=== PATIENT | female | born 1970 | race Caucasian/White ===

== ENCOUNTER 2020-11-29 06:54 | Day surgery (SDC) | payer BC, OTHER ==
[~2020-11-29 06:54] MED LIST: Dextrose 5%-0.45% NaCl 1,000 ML IV SCH; Midazolam 1 MG/ML 2 ML SDV ONE; Sodium Chloride 0.9% 10 ML Syringe FLUSH PRN; fentaNYL 100 MCG/2 ML SDV ONE
[2020-11-29] MEDS ORDERED: Midazolam 1 MG/ML 2 ML SDV IV ONE ×7 (06:55→07:44)
[2020-11-29] MEDS ORDERED: fentaNYL 100 MCG/2 ML SDV IV ONE ×3 (06:55→07:29)
--- NOTE | 2020-11-29 09:21 | OR ---
DATE: 11/29/2020 PROCEDURES: Incomplete colonoscopy, narrow-band imaging, and snare polypectomy. INSTRUMENT USED: PCF-H190DL Olympus video colonoscope. PREMEDICATIONS: Fentanyl 100 mcg intravenous, Versed 4 mg intravenous, nasal O2 cannula. The procedure was done under pulse oximetry, BP recording, and conveyor monitor. INDICATION: Screening colonoscopic examination is done for detection of any polypoid lesions and removal, endoscopic hemostasis therapy if needed. DESCRIPTION OF PROCEDURE: Initial rectal exam showed solid stool material that could be felt with fingertip. Rigid anoscopy was unremarkable. The colonoscope was passed with ease. In the distal rectum, just over 1 cm sized benign- appearing polyp was noted, NBI views were obtained, snare polypectomy was done, the tissues were retrieved and sent for histopathology. Polypectomy site was found to be clean. Photographs were taken of the rectal polyp and also polypectomy site. The scope was passed with ease up to the proximal descending colon area. Large amount of solid fecal material noted preventing further advancement of the instrument to visualize proximal areas. No bleeding was noted from any of the visualized areas at the commencement of the examination. The bowel preparation was quite inadequate. No stricture. No vascular ectasia. No large isolated ulcerations seen. No evidence of diffuse inflammatory bowel disease in the form of friability, contact bleeding, or ulcerations. Probing the proximal sides of folds and flexures using adequate distention, and clearing up the stool material, withdrawal of the scope was made. No bleeding was noted from any of the visualized areas at the completion of examination. IMPRESSION: Rectal polyp. The patient tolerated the procedure well. [facility] /[id number]
== END 2020-11-29 10:00 | disposition home or self-care (01) ==
LOC: DL.ENDO 06:54
PROVIDERS: ATTEND Internal Medicine Gastroenterology
DX: D12.8 Benign neoplasm of rectum (principal); E78.5 Hyperlipidemia, unspecified; M54.5 Low back pain; I10 Essential (primary) hypertension; F79 Unspecified intellectual disabilities; I87.309 Chronic venous hypertension (idiopathic) without complications of unspecified lower extremity; E66.09 Other obesity due to excess calories; Z68.39 Body mass index [BMI] 39.0-39.9, adult
CPT/HCPCS: 45338; J2250; J3010; J7042

== ENCOUNTER 2020-12-14 05:18 | Day surgery (SDC) | payer BC ==
[2020-12-14] MEDS ORDERED: Midazolam 1 MG/ML 2 ML SDV IV ONE ×6 (05:19→06:59)
[2020-12-14] MEDS ORDERED: fentaNYL 100 MCG/2 ML SDV IV ONE ×3 (05:19→06:39)
[2020-12-14] MEDS ORDERED: Dextrose 5%-0.45% NaCl 1,000 ML IV SCH (05:30)
[2020-12-14] MEDS ORDERED: Sodium Chloride 0.9% 10 ML Syringe FLUSH PRN (05:30)
[2020-12-14] MEDS ORDERED: fentaNYL 100 MCG/2 ML SDV ONE (05:41)
[2020-12-14] MEDS ORDERED: Midazolam 1 MG/ML 2 ML SDV ONE (05:41)
--- NOTE | 2020-12-14 08:29 | OR ---
DATE: 12/14/2020 PROCEDURE: Total colonoscopy. INSTRUMENT USED: PCF-H190DL Olympus video colonoscope. PREMEDICATIONS: Fentanyl 100 mcg intravenous, Versed 3.5 mg intravenous. Nasal O2 cannula. The procedure was done under pulse oximetry, BP recording, and threat monitoring analyst. INDICATION: The patient with previous colonic adenoma with restudy after inadequate bowel preparation before, 2-day bowel preparation carried out now. Colonoscopic examination is done for detection of any polypoid lesions and removal, endoscopic hemostasis therapy if needed. DESCRIPTION OF PROCEDURE: Initial rectal exam was unremarkable. Rigid anoscopy was normal. The colonoscope was passed with ease. Left colonic diverticula noted. The scope was passed with ease up to the ileocecal area. Photographs were taken of the normal-appearing cecum identified by double-bulged ileocecal folds. No bleeding was noted from any of the visualized areas at the commencement of the examination. There was large amount of fecal material, solid in consistency, also limited visualization of quite a few areas. Bowel preparation, [place] scale 2 in right colon, 1 in transverse and left colon, total score 4. No stricture, no vascular ectasia. No large isolated ulcerations seen. No evidence of diffuse inflammatory bowel disease in the form of friability, contact bleeding, or ulcerations. No polyp or tumor mass identified. Probing the proximal sides of folds and flexures using adequate distention and clearing up the stool material, withdrawal of the scope was made. Cecum to rectum time over 6 minutes. No bleeding was noted from any of the visualized areas at the completion of examination. IMPRESSION: Diverticulosis. The patient tolerated the procedure well. [facility] /[id number]
== END 2020-12-14 09:16 | disposition home or self-care (01) ==
LOC: DL.ENDO 05:18
PROVIDERS: ATTEND Internal Medicine Gastroenterology
DX: Z12.11 Encounter for screening for malignant neoplasm of colon (principal); K57.30 Diverticulosis of large intestine without perforation or abscess without bleeding; E66.09 Other obesity due to excess calories; E78.5 Hyperlipidemia, unspecified; F79 Unspecified intellectual disabilities; I10 Essential (primary) hypertension
CPT/HCPCS: 45378; J2250; J3010; J7042

== ENCOUNTER 2021-02-15 13:37 | Inpatient (IN) | payer BC ==
[2021-02-15] MEDS ORDERED: Docusate Sodium 100 MG Cap PO PRN (14:49)
[2021-02-15] MEDS ORDERED: Ondansetron 4 MG/2 ML SDV IVPUSH PRN (14:49)
[2021-02-15] MEDS ORDERED: Bisacodyl 5 MG Tab PO PRN (14:49)
--- NOTE | 2021-02-15 15:12 | PCM.HP ---
H&P History of Present Illness - General Date of Service: 02/15/21 Admit Problem/Dx: Admission Diagnosis/Problem Admission Diagnosis/Problem Cellulitis Source of Information: Patient, Provider (PCP) - History of Present Illness Initial Comments - Free Text/Narative: Pt is 50 y/o women sent from the clinic by her primary provider due to extensive cellulitis B legs. PT has chronic lymphedema with h/o recurrent cellulitis. Due to the extensive cellulitis, pt was admitted for IV antibiotics and dressing. Pt reports chills but no fever. No N/V/D. - Related Data Allergies/Adverse Reactions: Allergies Allergy/AdvReac Type Severity Reaction Status Date / Time No Known Allergies Allergy Verified 12/13/20 06:31 Home Medications: Home Meds Acetaminophen [Acetaminophen Extra Strength] 1,000 mg PO Q6H PRN 11/26/20 [History] Aspirin [Halfprin] 81 mg PO DAILY 11/26/20 [History] Ibuprofen 200 mg PO Q6H PRN 11/26/20 [History] No122/Iron/Folic Acid [ Multi Tablet] 1 tab PO DAILY 11/26/20 [History] Past Medical History HEENT History: Reports: Cataract, Impaired Vision Cardiovascular History: Reports: Blood Clots/VTE/DVT, High Cholesterol, Other (See Below) Other Cardiovascular History: STASIS EDEMA OF BILAT LE Respiratory History: Reports: None Gastrointestinal History: Reports: Colon Polyp, Other (See Below) Other Gastrointestinal History: S/P RECTAL VILLOTUBULAR ADENOMA Genitourinary History: Reports: None JOINTER MACHINE History: Reports: Musculoskeletal History: Reports: Back Pain, Chronic Neurological History: Reports: Other (See Below) Other Neuro History: INTELLECTUAL DISABILITY BORDERLINE. NIGHT TERRORS Psychiatric History: Reports: Learning Disability, Other (See Below) Other Psychiatric History: BORDERLINE INTELLECTUAL FUNCTIONING Endocrine/Metabolic History: Reports: Obesity/BMI 30+ Hematologic History: Reports: None Immunologic History: Reports: None Oncologic (Cancer) History: Reports: None Dermatologic History: Reports: Venous Stasis Dermatitis, Other (See Below) Other Dermatologic History: STASIS EDEMA WITH ULCER LEFT LOWER EXTREMITY - Infectious Disease History Infectious Disease History: Reports: Chicken Pox, Measles, Mumps - Past Surgical History Head Surgeries/Procedures: Reports: None HEENT Surgical History: Reports: None Cardiovascular Surgical History: Reports: None Respiratory Surgical History: Reports: None GI Surgical History: Reports: Colonoscopy, Polypectomy Endocrine Surgical History: Reports: None Neurological Surgical History: Reports: None Musculoskeletal Surgical History: Reports: None Oncologic Surgical History: Reports: None Dermatological Surgical History: Reports: None Social & Family History - Caffeine Use Caffeine Use: Reports: Coffee, Soda Other Caffeine Use: AVERAGE OF 36 OZ DAILY H&P Review of Systems - Review of Systems: Review Of Systems: Comprehensive ROS is negative, except as noted in HPI. General: Reports: Chills. Denies: Fever Pulmonary: Denies: Shortness of Breath Cardiovascular: Denies: Chest Pain Gastrointestinal: Denies: Abdominal Pain, Diarrhea, Nausea Genitourinary: Denies: Dysuria Psychiatric: Denies: Confusion Neurological: Denies: Confusion Exam - Exam Exam: See Below - Exam Quality Assessment: No: Supplemental Oxygen General: Alert, Oriented, Cooperative HEENT: EOMI Neck: Supple Lungs: Clear to Auscultation, Normal Respiratory Effort Cardiovascular: Regular Rate, Regular Rhythm GI/Abdominal Exam: Soft, Non-Tender Extremities: Pedal Edema, Other Skin: Rash, Wound, Other (skin is red and oozing , pus / drainge / extensive B legs) Neurological: Cranial Nerves Intact Neuro Extensive - Mental Status: Alert, Oriented x3 Neuro Extensive - Motor, Sensory, Reflexes: No: Normal Gait (pt is having trouble ambulating due to lower ext edema) Problem List Initiated/Reviewed/Updated: No Orders Last 24hrs: Active Orders 24 hr Category Date Time Status Patient Status [ADT] Routine ADT 02/15/21 14:50 Active Dressing Change [Wound Care] [RC] Q12H Care 02/15/21 14:59 Active Oxygen Therapy [RC] PRN Care 02/15/21 14:50 Active VTE/DVT Education [RC] PER UNIT ROUTINE Care 02/15/21 14:50 Active Vital Signs [RC] Q4H Care 02/15/21 14:50 Active OT Evaluation and Treatment [CONS] Routine Cons 02/15/21 14:49 Active PT Evaluation and Treatment [CONS] Routine Cons 02/15/21 14:49 Active Regular Diet [DIET] Diet 02/15/21 Dinner Active Venous Doppler Lwr Ext Lt [US] Urgent Exams 02/15/21 15:05 Ordered Venous Doppler Lwr Ext Rt [US] Urgent Exams 02/15/21 15:05 Ordered BASIC METABOLIC PANEL,BMP [CHEM] AM Lab 02/16/21 05:11 Ordered BASIC METABOLIC PANEL,BMP [CHEM] AM Lab 02/17/21 05:11 Ordered BASIC METABOLIC PANEL,BMP [CHEM] AM Lab 02/18/21 05:11 Ordered BASIC METABOLIC PANEL,BMP [CHEM] AM Lab 02/19/21 05:11 Ordered BASIC METABOLIC PANEL,BMP [CHEM] AM Lab 02/20/21 05:11 Ordered BASIC METABOLIC PANEL,BMP [CHEM] AM Lab 02/21/21 05:11 Ordered BASIC METABOLIC PANEL,BMP [CHEM] AM Lab 02/22/21 05:11 Ordered BASIC METABOLIC PANEL,BMP [CHEM] Stat Lab 02/15/21 14:49 Ordered CBC WITH AUTO DIFF [HEME] AM Lab 02/16/21 05:11 Ordered CBC WITH AUTO DIFF [HEME] AM Lab 02/17/21 05:11 Ordered CBC WITH AUTO DIFF [HEME] AM Lab 02/18/21 05:11 Ordered CBC WITH AUTO DIFF [HEME] AM Lab 02/19/21 05:11 Ordered CBC WITH AUTO DIFF [HEME] AM Lab 02/20/21 05:11 Ordered CBC WITH AUTO DIFF [HEME] AM Lab 02/21/21 05:11 Ordered CBC WITH AUTO DIFF [HEME] AM Lab 02/22/21 05:11 Ordered CBC WITH AUTO DIFF [HEME] Stat Lab 02/15/21 14:49 Ordered CULTURE BLOOD [BC] Stat Lab 02/15/21 14:55 Ordered CULTURE BLOOD [BC] Stat Lab 02/15/21 14:55 Ordered CULTURE WOUND + SMEAR [RM] Routine Lab 02/15/21 15:03 Ordered HCG QUALITATIVE,URINE [URCHEM] Stat Lab 02/15/21 14:49 Ordered Acetaminophen [TylenoL] Med 02/15/21 14:49 Ordered 650 mg PO Q4H PRN Docusate Sodium [Colace] Med 02/15/21 14:49 Ordered 100 mg PO BID PRN Enoxaparin [Lovenox] Med 02/15/21 15:00 Ordered 40 mg SUBCUT DAILY Furosemide [Lasix] Med 02/15/21 15:15 Ordered 20 mg IVPUSH BIDDIURETIC Ondansetron [Zofran] Med 02/15/21 14:49 Ordered 4 mg IVPUSH Q6H PRN Pharmacy to Dose - Vancomycin Med 02/15/21 15:00 Ordered 1 dose .XX ASDIRECTED bisacodyL [Dulcolax] Med 02/15/21 14:49 Ordered 5 mg PO DAILY PRN Blood Culture x2 Reflex Set [OM.PC] Stat Oth 02/15/21 14:49 Ordered Resuscitation Status Routine Resus Stat 02/15/21 14:49 Ordered Medication Orders Acetaminophen (Acetaminophen 325 Mg Tab) 650 mg PO Q4H PRN PRN Reason: Pain (Mild 1-3)/fever Bisacodyl (Bisacodyl 5 Mg Tab) 5 mg PO DAILY PRN PRN Reason: Constipation Docusate Sodium (Docusate Sodium 100 Mg Cap) 100 mg PO BID PRN PRN Reason: Constipation Enoxaparin Sodium (Enoxaparin 40 Mg/0.4 Ml Syringe) 40 mg SUBCUT DAILY BOWEN Furosemide (Furosemide 20 Mg/2 Ml Vial) 20 mg IVPUSH BIDDIURETIC BOWEN Ondansetron HCl (Ondansetron 4 Mg/2 Ml Sdv) 4 mg IVPUSH Q6H PRN PRN Reason: Nausea/Vomiting Vancomycin HCl (Pharmacy To Dose - Vancomycin) 1 dose .XX ASDIRECTED [facility] Assessment/Plan Comment:: extensive cellulitis/ lymphoedema, lower ext edema decreased mobility: due to lower ext edema Chronic back pain Obesity Would cult, b cult Vanco Dressing PT/OT DVT prophylaxis: Lovenox Full code.
[2021-02-15 15:42] LABS: ANION GAP 14.4 mEq/L (7-13); CHLORIDE,CL 102 mmol/L (98-107); SODIUM,NA 140 mmol/L (136-145)
[2021-02-15] MEDS: Enoxaparin 40 MG/0.4 ML Syringe SUBCUT SCH (16:45)
[2021-02-15] MEDS: Furosemide 20 MG/2 ML VIAL IVPUSH SCH (16:45)
[2021-02-15] MEDS: Acetaminophen 325 MG Tab PO PRN (18:21)
[2021-02-16] MEDS: Nystatin Topical Powder 30 GM Bottle TOP SCH ×3 (00:20→21:11)
[2021-02-16] MEDS: oxyCODONE 5 MG Tab PO PRN (00:21)
[2021-02-16] MEDS: Acetaminophen 325 MG Tab PO PRN ×4 (00:21→21:10)
[2021-02-16 06:26] LABS: ANION GAP 9.8 mEq/L (7-13); CHLORIDE,CL 105 mmol/L (98-107); SODIUM,NA 140 mmol/L (136-145)
[2021-02-16] MEDS: Furosemide 20 MG/2 ML VIAL IVPUSH SCH ×3 (08:11→17:26)
[2021-02-16] MEDS: Enoxaparin 40 MG/0.4 ML Syringe SUBCUT SCH (08:13)
--- NOTE | 2021-02-16 11:11 | PCM.PN ---
- General Info Date of Service: 02/16/21 Functional Status: Reports: Pain Controlled, Tolerating Diet - Review of Systems General: Denies: Fever Pulmonary: Denies: Shortness of Breath Cardiovascular: Denies: Chest Pain Gastrointestinal: Denies: Abdominal Pain Skin: Reports: Other (edema and cellultis mildly improved. ) Neurological: Denies: Confusion Psychiatric: Denies: Confusion - Patient Data Vitals - Most Recent: Last Vital Signs Temp 100.8 F H 02/16/21 10:02 Pulse 86 02/16/21 07:34 Resp 18 02/16/21 07:34 BP 115/67 02/16/21 07:34 Pulse Ox 98 02/16/21 07:34 Weight - Most Recent: 226 lb 4.8 oz I&O - Last 24 Hours: Intake & Output 02/15/21 02/16/21 02/16/21 22:59 06:59 14:59 Intake Total 240 500 Output Total 350 475 Balance -350 -235 500 Lab Results Last 24 Hours: Laboratory Results - last 24 hr 02/15/21 02/15/21 02/16/21 Range/Units 15:10 15:10 05:52 WBC 7.2 7.3 (5.0-10.0) 10^3/uL RBC 4.49 4.00 L (4.2-5.4) 10^6/uL Hgb 11.9 L 10.6 L (12.0-16.0) g/dL Hct 36.9 L 33.0 L (37.0-47.0) % MCV 82.2 82.5 (80-100) fL MCH 26.5 L 26.5 L (27.0-34.0) pg MCHC 32.2 L 32.1 L (33.0-35.0) g/dL Plt Count 254 204 (150-450) 10^3/uL Neut % (Auto) 68.3 71.9 (42.2-75.2) % Lymph % (Auto) 15.3 L 13.0 L (20.5-50.1) % Garrard % (Auto) 12.1 H 13.2 H (2-8) % Eos % (Auto) 3.7 H 1.5 (1.0-3.0) % Baso % (Auto) 0.6 0.4 (0.0-1.0) % Sodium 140 (136-145) mmol/L Potassium 3.4 L (3.5-5.1) mmol/L Chloride 102 (98-107) mmol/L Carbon Dioxide 27 (21-32) mmol/L Anion Gap 14.4 H (7-13) mEq/L BUN 17 (7-18) mg/dL Creatinine 0.76 (0.55-1.02) mg/dL Est Cr Clr Drug Dosing 73.26 mL/min Estimated GFR (MDRD) > 60 Glucose 99 (70-99) mg/dL Calcium 8.6 (8.5-10.1) mg/dL 02/16/21 Range/Units 05:52 WBC (5.0-10.0) 10^3/uL RBC (4.2-5.4) 10^6/uL Hgb (12.0-16.0) g/dL Hct (37.0-47.0) % MCV (80-100) fL MCH (27.0-34.0) pg MCHC (33.0-35.0) g/dL Plt Count (150-450) 10^3/uL Neut % (Auto) (42.2-75.2) % Lymph % (Auto) (20.5-50.1) % Garrard % (Auto) (2-8) % Eos % (Auto) (1.0-3.0) % Baso % (Auto) (0.0-1.0) % Sodium 140 (136-145) mmol/L Potassium 3.8 (3.5-5.1) mmol/L Chloride 105 (98-107) mmol/L Carbon Dioxide 29 (21-32) mmol/L Anion Gap 9.8 (7-13) mEq/L BUN 12 (7-18) mg/dL Creatinine 0.94 (0.55-1.02) mg/dL Est Cr Clr Drug Dosing 59.23 mL/min Estimated GFR (MDRD) > 60 Glucose 116 H (70-99) mg/dL Calcium 7.9 L (8.5-10.1) mg/dL Renny Results Last 24 Hours: Microbiology 02/15/21 15:07 Gram Stain - Final Leg, Unspecified Wound Culture - Preliminary 02/15/21 15:18 Anaerobic Blood Culture - Final Blood - Arm, Left Med Orders - Current: Current Medications Acetaminophen (Acetaminophen 325 Mg Tab) 650 mg PO Q4H PRN PRN Reason: Pain (Mild 1-3)/fever Last Admin: 02/16/21 09:32 Dose: 650 mg Documented by: Bisacodyl (Bisacodyl 5 Mg Tab) 5 mg PO DAILY PRN PRN Reason: Constipation Docusate Sodium (Docusate Sodium 100 Mg Cap) 100 mg PO BID PRN PRN Reason: Constipation Enoxaparin Sodium (Enoxaparin 40 Mg/0.4 Ml Syringe) 40 mg SUBCUT DAILY [facility] Last Admin: 02/16/21 08:13 Dose: 40 mg Documented by: Furosemide (Furosemide 20 Mg/2 Ml Vial) 20 mg IVPUSH BIDDIURETIC [facility] Last Admin: 02/16/21 08:11 Dose: 20 mg Documented by: Vancomycin HCl 1 gm/ Sodium (Chloride) 250 mls @ 166.667 mls/hr IV Q8H [facility] Last Admin: 02/16/21 08:17 Dose: 166.667 mls/hr Documented by: Influenza Virus Vaccine (Pharmacy To Dose - Influenza Vaccine) 1 each IM DAILY [facility] Last Admin: 02/16/21 08:21 Dose: Not Given Documented by: Nystatin (Nystatin Topical Powder 30 Gm Bottle) 0 gm TOP BID [facility] Last Admin: 02/16/21 10:34 Dose: 1 applic Documented by: Ondansetron HCl (Ondansetron 4 Mg/2 Ml Sdv) 4 mg IVPUSH Q6H PRN PRN Reason: Nausea/Vomiting Oxycodone HCl (Oxycodone 5 Mg Tab) 5 mg PO Q6H PRN PRN Reason: Pain (severe 7-10) Last Admin: 02/16/21 00:21 Dose: 5 mg Documented by: Vancomycin HCl (Pharmacy To Dose - Vancomycin) 1 dose .XX ASDIRECTED BOWEN - Exam Quality Assessment: No: Supplemental Oxygen Urinary Catheter Total Time: 0Days 15Hours General: No: Oriented, Cooperative Lungs: Clear to Auscultation, Normal Respiratory Effort Cardiovascular: Regular Rhythm GI/Abdominal Exam: Soft, Non-Tender Extremities: Pedal Edema (mildly improved), Other (in dressing ) Skin: Other (legs in dressing) Neurological: No New Focal Deficit Psy/Mental Status: Alert, Normal Affect - Patient Data Lab Results Last 24 hrs: Laboratory Results - last 24 hr 02/15/21 02/15/21 02/16/21 Range/Units 15:10 15:10 05:52 WBC 7.2 7.3 (5.0-10.0) 10^3/uL RBC 4.49 4.00 L (4.2-5.4) 10^6/uL Hgb 11.9 L 10.6 L (12.0-16.0) g/dL Hct 36.9 L 33.0 L (37.0-47.0) % MCV 82.2 82.5 (80-100) fL MCH 26.5 L 26.5 L (27.0-34.0) pg MCHC 32.2 L 32.1 L (33.0-35.0) g/dL Plt Count 254 204 (150-450) 10^3/uL Neut % (Auto) 68.3 71.9 (42.2-75.2) % Lymph % (Auto) 15.3 L 13.0 L (20.5-50.1) % [place]ard % (Auto) 12.1 H 13.2 H (2-8) % Eos % (Auto) 3.7 H 1.5 (1.0-3.0) % Baso % (Auto) 0.6 0.4 (0.0-1.0) % Sodium 140 (136-145) mmol/L Potassium 3.4 L (3.5-5.1) mmol/L Chloride 102 (98-107) mmol/L Carbon Dioxide 27 (21-32) mmol/L Anion Gap 14.4 H (7-13) mEq/L BUN 17 (7-18) mg/dL Creatinine 0.76 (0.55-1.02) mg/dL Est Cr Clr Drug Dosing 73.26 mL/min Estimated GFR (MDRD) > 60 Glucose 99 (70-99) mg/dL Calcium 8.6 (8.5-10.1) mg/dL 02/16/21 Range/Units 05:52 WBC (5.0-10.0) 10^3/uL RBC (4.2-5.4) 10^6/uL Hgb (12.0-16.0) g/dL Hct (37.0-47.0) % MCV (80-100) fL MCH (27.0-34.0) pg MCHC (33.0-35.0) g/dL Plt Count (150-450) 10^3/uL Neut % (Auto) (42.2-75.2) % Lymph % (Auto) (20.5-50.1) % Garrard % (Auto) (2-8) % Eos % (Auto) (1.0-3.0) % Baso % (Auto) (0.0-1.0) % Sodium 140 (136-145) mmol/L Potassium 3.8 (3.5-5.1) mmol/L Chloride 105 (98-107) mmol/L Carbon Dioxide 29 (21-32) mmol/L Anion Gap 9.8 (7-13) mEq/L BUN 12 (7-18) mg/dL Creatinine 0.94 (0.55-1.02) mg/dL Est Cr Clr Drug Dosing 59.23 mL/min Estimated GFR (MDRD) > 60 Glucose 116 H (70-99) mg/dL Calcium 7.9 L (8.5-10.1) mg/dL Result Diagrams: 02/16/21 05:52 02/16/21 05:52 Renny Results Last 24 hrs: Microbiology 02/15/21 15:07 Gram Stain - Final Leg, Unspecified Wound Culture - Preliminary 02/15/21 15:18 Anaerobic Blood Culture - Final Blood - Arm, Left Sepsis Event Note - Evaluation Sepsis Screening Result: No Definite Risk - Focused Exam Vital Signs: Vital Signs Temp Temp Pulse Resp BP BP Pulse Ox 02/16/21 10:02 100.8 F H 02/16/21 09:32 100.2 F 02/16/21 07:34 100.2 F 86 18 115/67 98 02/16/21 05:01 100.7 F H 02/16/21 04:31 99.7 F 02/16/21 04:00 99.7 F 84 15 114/54 L 95 02/16/21 00:51 101.9 F H 02/16/21 00:21 101.9 F H 02/16/21 00:00 101.9 F H 109 H 20 129/62 95 - Problem List Review Problem List Initiated/Reviewed/Updated: No - My Orders Last 24 Hours: My Active Orders 02/15/21 14:49 OT Evaluation and Treatment [CONS] Routine PT Evaluation and Treatment [CONS] Routine Acetaminophen [TylenoL] 650 mg PO Q4H PRN Docusate Sodium [Colace] 100 mg PO BID PRN Ondansetron [Zofran] 4 mg IVPUSH Q6H PRN bisacodyL [Dulcolax] 5 mg PO DAILY PRN Blood Culture x2 Reflex Set [OM.PC] Stat Resuscitation Status Routine 02/15/21 14:50 Patient Status [ADT] Routine Oxygen Therapy [RC] PRN VTE/DVT Education [RC] Vital Signs [RC] 00,04,08,12,16,20 02/15/21 14:59 Dressing Change [Wound Care] [RC] 02/15/21 15:00 Pharmacy to Dose - Vancomycin 1 dose .XX ASDIRECTED 02/15/21 15:07 CULTURE WOUND + SMEAR [RM] Routine 02/15/21 15:10 CULTURE BLOOD [BC] Stat 02/15/21 15:17 Vaccine to be Administered/Admin Charge [RC] ASDIRECTED 02/15/21 15:18 CULTURE BLOOD [BC] Stat 02/15/21 15:30 Venous Doppler Lwr Ext Bi [US] Urgent 02/15/21 16:00 Furosemide [Lasix] 20 mg IVPUSH BIDDIURETIC 02/15/21 17:00 Enoxaparin [Lovenox] 40 mg SUBCUT DAILY Vancomycin 1 gm Sodium Chloride 0.9% [Normal Saline (AdvBag)] 250 ml IV Q8H 02/15/21 Dinner Regular Diet [DIET] 02/15/21 18:21 Urinary Catheter Assessment [RC] 02/15/21 18:30 Insert Burnett Catheter [Insert Urinary Catheter] [OM.PC] Q24H 02/15/21 21:27 oxyCODONE 5 mg PO Q6H PRN 02/15/21 21:45 Nystatin [Nystop] See Dose Instructions TOP BID 02/16/21 09:00 Pharmacy to Dose - InFluenza V [Pharmacy to Dose - InFluenza Vaccine] 1 each IM DAILY 02/17/21 05:11 BASIC METABOLIC PANEL,BMP [CHEM] AM CBC WITH AUTO DIFF [HEME] AM 02/17/21 08:30 VANCOMYCIN TROUGH [CHEM] Timed 02/18/21 05:11 BASIC METABOLIC PANEL,BMP [CHEM] AM CBC WITH AUTO DIFF [HEME] AM 02/19/21 05:11 BASIC METABOLIC PANEL,BMP [CHEM] AM CBC WITH AUTO DIFF [HEME] AM 02/20/21 05:11 BASIC METABOLIC PANEL,BMP [CHEM] AM CBC WITH AUTO DIFF [HEME] AM 02/21/21 05:11 BASIC METABOLIC PANEL,BMP [CHEM] AM CBC WITH AUTO DIFF [HEME] AM 02/22/21 05:11 BASIC METABOLIC PANEL,BMP [CHEM] AM CBC WITH AUTO DIFF [HEME] AM - Plan Plan:: extensive cellulitis/ lymphoedema, lower ext edema decreased mobility: due to lower ext edema Chronic back pain Obesity Would cult, b cult Vanco Dressing PT/OT DVT prophylaxis: Lovenox Full code.
--- NOTE | 2021-02-16 11:38 | US ---
EXAMINATION: Venous Doppler Lwr Ext bilateral SEX: Female AGE: 50 years CLINICAL HISTORY: 50-year-old obese female with bilateral lower extremity swelling. Comparison Sonographic DVT exam 31 August 2011 reported as "negative". Interpretation: Negative exam. Deep veins of both calves incompletely evaluated (technical) but no sign of deep vein thrombosis behind the knees or proximally in either lower extremity. No popliteal or Alejandro's cyst. No hematomas. Prominent lymph nodes both thighs. No sign of intraluminal echogenic thrombus identified in either popliteal, superficial or common femoral vein. Normal compressibility, augmentation and venous waveforms demonstrated in the deep veins of both thighs.
[2021-02-16] MEDS: Potassium Chloride 10 MEQ Tab.ER PO SCH (21:05)
[2021-02-17] MEDS: Acetaminophen 325 MG Tab PO PRN (04:40)
[2021-02-17] MEDS: Furosemide 20 MG/2 ML VIAL IVPUSH SCH ×3 (08:21→17:49)
[2021-02-17] MEDS: Enoxaparin 40 MG/0.4 ML Syringe SUBCUT SCH (08:21)
[2021-02-17] MEDS: Nystatin Topical Powder 30 GM Bottle TOP SCH ×2 (08:28→20:23)
[2021-02-17 08:51] LABS: ANION GAP 13.8 mEq/L (7-13); CHLORIDE,CL 104 mmol/L (98-107); SODIUM,NA 140 mmol/L (136-145)
--- NOTE | 2021-02-17 10:37 | PCM.PN ---
- General Info Date of Service: 02/17/21 Functional Status: Reports: Pain Controlled, Tolerating Diet - Review of Systems General: Denies: Fever, Chills Pulmonary: Denies: Shortness of Breath Cardiovascular: Denies: Chest Pain Gastrointestinal: Denies: Abdominal Pain Musculoskeletal: Reports: Leg Pain (better) Skin: Reports: Other (RT leg is better) - Patient Data Vitals - Most Recent: Last Vital Signs Temp 99.0 F 02/17/21 08:00 Pulse 89 02/17/21 08:00 Resp 16 02/17/21 08:00 BP 138/63 02/17/21 08:00 Pulse Ox 96 02/17/21 08:00 Weight - Most Recent: 225 lb I&O - Last 24 Hours: Intake & Output 02/16/21 02/17/21 02/17/21 22:59 06:59 14:59 Intake Total 1450 560 Output Total 2950 850 1300 Balance -1500 -850 -740 Lab Results Last 24 Hours: Laboratory Results - last 24 hr 02/17/21 02/17/21 02/17/21 Range/Units 08:31 08:31 08:31 WBC 6.7 (5.0-10.0) 10^3/uL RBC 4.32 (4.2-5.4) 10^6/uL Hgb 11.5 L (12.0-16.0) g/dL Hct 35.5 L (37.0-47.0) % MCV 82.2 (80-100) fL MCH 26.6 L (27.0-34.0) pg MCHC 32.4 L (33.0-35.0) g/dL Plt Count 199 (150-450) 10^3/uL Neut % (Auto) 66.7 (42.2-75.2) % Lymph % (Auto) 18.1 L (20.5-50.1) % Reeves % (Auto) 10.6 H (2-8) % Eos % (Auto) 4.2 H (1.0-3.0) % Baso % (Auto) 0.4 (0.0-1.0) % Sodium 140 (136-145) mmol/L Potassium 3.8 (3.5-5.1) mmol/L Chloride 104 (98-107) mmol/L Carbon Dioxide 26 (21-32) mmol/L Anion Gap 13.8 H (7-13) mEq/L BUN 17 (7-18) mg/dL Creatinine 0.92 (0.55-1.02) mg/dL Est Cr Clr Drug Dosing 60.52 mL/min Estimated GFR (MDRD) > 60 Glucose 161 H (70-99) mg/dL Calcium 8.1 L (8.5-10.1) mg/dL Vancomycin Trough 16.6 (10.0-20.0) ug/mL Renny Results Last 24 Hours: Microbiology 02/15/21 15:07 Gram Stain - Final Leg, Unspecified Wound Culture - Preliminary Pseudomonas Aeruginosa 02/15/21 15:18 Aerobic Blood Culture - Preliminary Blood - Arm, Left NO GROWTH AFTER 1 DAY Anaerobic Blood Culture - Final 02/15/21 15:10 Aerobic Blood Culture - Preliminary Blood - Arm, Right NO GROWTH AFTER 1 DAY Anaerobic Blood Culture - Preliminary NO GROWTH AFTER 1 DAY Med Orders - Current: Current Medications Acetaminophen (Acetaminophen 325 Mg Tab) 650 mg PO Q4H PRN PRN Reason: Pain (Mild 1-3)/fever Last Admin: 02/17/21 04:40 Dose: 650 mg Documented by: Bisacodyl (Bisacodyl 5 Mg Tab) 5 mg PO DAILY PRN PRN Reason: Constipation Docusate Sodium (Docusate Sodium 100 Mg Cap) 100 mg PO BID PRN PRN Reason: Constipation Enoxaparin Sodium (Enoxaparin 40 Mg/0.4 Ml Syringe) 40 mg SUBCUT DAILY [facility] Last Admin: 02/17/21 08:21 Dose: 40 mg Documented by: Furosemide (Furosemide 20 Mg/2 Ml Vial) 40 mg IVPUSH TIDMEALS [facility] Last Admin: 02/17/21 08:21 Dose: 40 mg Documented by: Vancomycin HCl 1 gm/ Sodium (Chloride) 250 mls @ 166.667 mls/hr IV Q8H [facility] Last Admin: 02/17/21 09:37 Dose: 166.667 mls/hr Documented by: Levofloxacin/Dextrose 750 mg/ (Premix) 150 mls @ 100 mls/hr IV Q24H [facility] Influenza Virus Vaccine (Pharmacy To Dose - Influenza Vaccine) 1 each IM DAILY [facility] Last Admin: 02/17/21 08:27 Dose: Not Given Documented by: Nystatin (Nystatin Topical Powder 30 Gm Bottle) 0 gm TOP BID [facility] Last Admin: 02/17/21 08:28 Dose: 1 applic Documented by: Ondansetron HCl (Ondansetron 4 Mg/2 Ml Sdv) 4 mg IVPUSH Q6H PRN PRN Reason: Nausea/Vomiting Oxycodone HCl (Oxycodone 5 Mg Tab) 5 mg PO Q6H PRN PRN Reason: Pain (severe 7-10) Last Admin: 02/16/21 00:21 Dose: 5 mg Documented by: Potassium Chloride (Potassium Chloride 10 Meq Tab.Er) 20 meq PO BEDTIME [facility] Last Admin: 02/16/21 21:05 Dose: 20 meq Documented by: Vancomycin HCl (Pharmacy To Dose - Vancomycin) 1 dose .XX ASDIRECTED [facility] Discontinued Medications Furosemide (Furosemide 20 Mg/2 Ml Vial) 20 mg IVPUSH BIDDIURETIC [facility] Last Admin: 02/16/21 08:11 Dose: 20 mg Documented by: - Exam Quality Assessment: No: Supplemental Oxygen Urinary Catheter Total Time: 1Days 14Hours General: Alert, Oriented HEENT: EOMI Lungs: Clear to Auscultation Cardiovascular: Regular Rate, Regular Rhythm GI/Abdominal Exam: Soft, Non-Tender (Female) Exam: Other (Burnett in place) Extremities: Pedal Edema Skin: Rash, Other (extensive cellulitis, still with edema to toes. more improved on RT. ) - Patient Data Lab Results Last 24 hrs: Laboratory Results - last 24 hr 02/17/21 02/17/21 02/17/21 Range/Units 08:31 08:31 08:31 WBC 6.7 (5.0-10.0) 10^3/uL RBC 4.32 (4.2-5.4) 10^6/uL Hgb 11.5 L (12.0-16.0) g/dL Hct 35.5 L (37.0-47.0) % MCV 82.2 (80-100) fL MCH 26.6 L (27.0-34.0) pg MCHC 32.4 L (33.0-35.0) g/dL Plt Count 199 (150-450) 10^3/uL Neut % (Auto) 66.7 (42.2-75.2) % Lymph % (Auto) 18.1 L (20.5-50.1) % [place] % (Auto) 10.6 H (2-8) % Eos % (Auto) 4.2 H (1.0-3.0) % Baso % (Auto) 0.4 (0.0-1.0) % Sodium 140 (136-145) mmol/L Potassium 3.8 (3.5-5.1) mmol/L Chloride 104 (98-107) mmol/L Carbon Dioxide 26 (21-32) mmol/L Anion Gap 13.8 H (7-13) mEq/L BUN 17 (7-18) mg/dL Creatinine 0.92 (0.55-1.02) mg/dL Est Cr Clr Drug Dosing 60.52 mL/min Estimated GFR (MDRD) > 60 Glucose 161 H (70-99) mg/dL Calcium 8.1 L (8.5-10.1) mg/dL Vancomycin Trough 16.6 (10.0-20.0) ug/mL Result Diagrams: 02/17/21 08:31 02/17/21 08:31 Renny Results Last 24 hrs: Microbiology 02/15/21 15:07 Gram Stain - Final Leg, Unspecified Wound Culture - Preliminary Pseudomonas Aeruginosa 02/15/21 15:18 Aerobic Blood Culture - Preliminary Blood - Arm, Left NO GROWTH AFTER 1 DAY Anaerobic Blood Culture - Final 02/15/21 15:10 Aerobic Blood Culture - Preliminary Blood - Arm, Right NO GROWTH AFTER 1 DAY Anaerobic Blood Culture - Preliminary NO GROWTH AFTER 1 DAY Sepsis Event Note - Evaluation Sepsis Screening Result: No Definite Risk - Focused Exam Vital Signs: Vital Signs Temp Temp Pulse Resp BP Pulse Ox 02/17/21 08:00 99.0 F 89 16 138/63 96 02/17/21 05:10 98.5 F 02/17/21 04:40 99.9 F 02/17/21 04:00 99.9 F 83 18 136/71 97 02/17/21 00:00 99.6 F 100 20 135/75 93 L - Problem List Review Problem List Initiated/Reviewed/Updated: No - My Orders Last 24 Hours: My Active Orders 02/16/21 12:00 Furosemide [Lasix] 40 mg IVPUSH TIDMEALS 02/16/21 21:00 Potassium Chloride [Klor-Con 10] 20 meq PO BEDTIME 02/17/21 10:45 Levofloxacin/Dextrose 5%-Water [Levaquin in D5W 750 MG/150 ML] 750 mg Premix Bag 1 bag IV Q24H 02/18/21 05:11 BASIC METABOLIC PANEL,BMP [CHEM] AM CBC WITH AUTO DIFF [HEME] AM 02/19/21 05:11 BASIC METABOLIC PANEL,BMP [CHEM] AM CBC WITH AUTO DIFF [HEME] AM 02/20/21 05:11 BASIC METABOLIC PANEL,BMP [CHEM] AM CBC WITH AUTO DIFF [HEME] AM 02/21/21 05:11 BASIC METABOLIC PANEL,BMP [CHEM] AM CBC WITH AUTO DIFF [HEME] AM 02/22/21 05:11 BASIC METABOLIC PANEL,BMP [CHEM] AM CBC WITH AUTO DIFF [HEME] AM - Plan Plan:: extensive cellulitis/ lymphoedema, lower ext edema decreased mobility: due to lower ext edema Chronic back pain Obesity Would cult: Gram positive and pseudomonas. b cult: Neg so far. Vanco. Add Vanco Dressing PT/OT DVT prophylaxis: Lovenox Full code.
[2021-02-17] MEDS: Mineral Oil/White Petrolatum Crm 113 GM Jar TOP SCH (11:00)
[2021-02-17] MEDS: oxyCODONE 5 MG Tab PO PRN ×2 (12:00→22:11)
[2021-02-17] MEDS: Levofloxacin/Dextrose 5%-Water 750 MG in Premix Bag 1 BAG IV SCH (12:02)
[2021-02-17] MEDS: Potassium Chloride 10 MEQ Tab.ER PO SCH (20:22)
[2021-02-18 06:35] LABS: ANION GAP 10.9 mEq/L (7-13); CHLORIDE,CL 103 mmol/L (98-107); SODIUM,NA 140 mmol/L (136-145)
[2021-02-18] MEDS: Furosemide 20 MG/2 ML VIAL IVPUSH SCH (07:58)
[2021-02-18] MEDS: Nystatin Topical Powder 30 GM Bottle TOP SCH ×2 (09:32→22:18)
[2021-02-18] MEDS: Enoxaparin 40 MG/0.4 ML Syringe SUBCUT SCH (09:32)
[2021-02-18] MEDS: Mineral Oil/White Petrolatum Crm 113 GM Jar TOP SCH (09:41)
--- NOTE | 2021-02-18 09:42 | PCM.PN ---
- General Info Date of Service: 02/18/21 Subjective Update: reports that her legs are getting better. Functional Status: Reports: Pain Controlled, Tolerating Diet - Review of Systems General: Denies: Fever Pulmonary: Denies: Shortness of Breath Cardiovascular: Reports: Edema. Denies: Chest Pain Gastrointestinal: Denies: Abdominal Pain Neurological: Denies: Confusion Psychiatric: Denies: Confusion - Patient Data Vitals - Most Recent: Last Vital Signs Temp 98.4 F 02/18/21 07:21 Pulse 89 02/18/21 07:21 Resp 18 02/18/21 07:21 BP 119/67 02/18/21 07:21 Pulse Ox 98 02/18/21 07:21 Weight - Most Recent: 223 lb 12.8 oz I&O - Last 24 Hours: Intake & Output 02/17/21 02/18/21 02/18/21 22:59 06:59 14:59 Intake Total 1170 500 Output Total 600 1600 Balance 570 -1100 Lab Results Last 24 Hours: Laboratory Results - last 24 hr 02/18/21 02/18/21 Range/Units 05:30 05:30 WBC 7.0 (5.0-10.0) 10^3/uL RBC 4.23 (4.2-5.4) 10^6/uL Hgb 11.2 L (12.0-16.0) g/dL Hct 34.9 L (37.0-47.0) % MCV 82.5 (80-100) fL MCH 26.5 L (27.0-34.0) pg MCHC 32.1 L (33.0-35.0) g/dL Plt Count 222 (150-450) 10^3/uL Neut % (Auto) 63.3 (42.2-75.2) % Lymph % (Auto) 19.8 L (20.5-50.1) % [place] % (Auto) 11.9 H (2-8) % Eos % (Auto) 4.7 H (1.0-3.0) % Baso % (Auto) 0.3 (0.0-1.0) % Sodium 140 (136-145) mmol/L Potassium 3.9 (3.5-5.1) mmol/L Chloride 103 (98-107) mmol/L Carbon Dioxide 30 (21-32) mmol/L Anion Gap 10.9 (7-13) mEq/L BUN 18 (7-18) mg/dL Creatinine 0.90 (0.55-1.02) mg/dL Est Cr Clr Drug Dosing 61.86 mL/min Estimated GFR (MDRD) > 60 Glucose 99 (70-99) mg/dL Calcium 8.1 L (8.5-10.1) mg/dL Renny Results Last 24 Hours: Microbiology 02/15/21 15:07 Gram Stain - Final Leg, Unspecified Wound Culture - Preliminary Pseudomonas Aeruginosa Morganella Morganii (Mrsa) Staphylococcus Aureus 02/15/21 15:18 Aerobic Blood Culture - Preliminary Blood - Arm, Left NO GROWTH AFTER 2 DAYS Anaerobic Blood Culture - Final 02/15/21 15:10 Aerobic Blood Culture - Preliminary Blood - Arm, Right NO GROWTH AFTER 2 DAYS Anaerobic Blood Culture - Preliminary NO GROWTH AFTER 2 DAYS Med Orders - Current: Current Medications Acetaminophen (Acetaminophen 325 Mg Tab) 650 mg PO Q4H PRN PRN Reason: Pain (Mild 1-3)/fever Last Admin: 02/17/21 04:40 Dose: 650 mg Documented by: Bisacodyl (Bisacodyl 5 Mg Tab) 5 mg PO DAILY PRN PRN Reason: Constipation Docusate Sodium (Docusate Sodium 100 Mg Cap) 100 mg PO BID PRN PRN Reason: Constipation Last Admin: 02/17/21 20:22 Dose: 100 mg Documented by: Enoxaparin Sodium (Enoxaparin 40 Mg/0.4 Ml Syringe) 40 mg SUBCUT DAILY [facility] Last Admin: 02/18/21 09:32 Dose: 40 mg Documented by: Furosemide (Furosemide 40 Mg/4 Ml Vial) 40 mg IVPUSH BIDDIURETIC [facility] Levofloxacin/Dextrose 750 mg/ (Premix) 150 mls @ 100 mls/hr IV Q24H [facility] Last Admin: 02/17/21 12:02 Dose: 100 mls/hr Documented by: Vancomycin HCl 1 gm/ Sodium (Chloride) 250 mls @ 166.667 mls/hr IV Q12HR [facility] Last Admin: 02/18/21 09:32 Dose: 166.667 mls/hr Documented by: Influenza Virus Vaccine (Pharmacy To Dose - Influenza Vaccine) 1 each IM DAILY [facility] Last Admin: 02/18/21 09:34 Dose: Not Given Documented by: Mineral Oil/White Petrolatum (Mineral Oil/White Petrolatum Crm 113 Gm Jar) 10 gm TOP DAILY [facility] Last Admin: 02/17/21 11:00 Dose: 1 applic Documented by: Nystatin (Nystatin Topical Powder 30 Gm Bottle) 0 gm TOP BID [facility] Last Admin: 02/18/21 09:32 Dose: 1 applic Documented by: Ondansetron HCl (Ondansetron 4 Mg/2 Ml Sdv) 4 mg IVPUSH Q6H PRN PRN Reason: Nausea/Vomiting Oxycodone HCl (Oxycodone 5 Mg Tab) 5 mg PO Q6H PRN PRN Reason: Pain (severe 7-10) Last Admin: 02/17/21 22:11 Dose: 5 mg Documented by: Potassium Chloride (Potassium Chloride 10 Meq Tab.Er) 20 meq PO BEDTIME [facility] Last Admin: 02/17/21 20:22 Dose: 20 meq Documented by: Vancomycin HCl (Pharmacy To Dose - Vancomycin) 1 dose .XX ASDIRECTED [facility] Discontinued Medications Furosemide (Furosemide 20 Mg/2 Ml Vial) 20 mg IVPUSH BIDDIURETIC [facility] Last Admin: 02/16/21 08:11 Dose: 20 mg Documented by: Furosemide (Furosemide 20 Mg/2 Ml Vial) 40 mg IVPUSH TIDMEALS [facility] Last Admin: 02/18/21 07:58 Dose: 40 mg Documented by: Vancomycin HCl 1 gm/ Sodium (Chloride) 250 mls @ 166.667 mls/hr IV Q8H [facility] Last Admin: 02/17/21 09:37 Dose: 166.667 mls/hr Documented by: - Exam Quality Assessment: No: Supplemental Oxygen Urinary Catheter Total Time: 2Days 4Hours General: Alert, Oriented Lungs: Clear to Auscultation, Normal Respiratory Effort Cardiovascular: Regular Rate, Regular Rhythm GI/Abdominal Exam: Soft Extremities: Other (B legs in dressing) Skin: Other (lrgs in dressing) Neurological: No: No New Focal Deficit Psy/Mental Status: Alert, Normal Affect - Patient Data Lab Results Last 24 hrs: Laboratory Results - last 24 hr 02/18/21 02/18/21 Range/Units 05:30 05:30 WBC 7.0 (5.0-10.0) 10^3/uL RBC 4.23 (4.2-5.4) 10^6/uL Hgb 11.2 L (12.0-16.0) g/dL Hct 34.9 L (37.0-47.0) % MCV 82.5 (80-100) fL MCH 26.5 L (27.0-34.0) pg MCHC 32.1 L (33.0-35.0) g/dL Plt Count 222 (150-450) 10^3/uL Neut % (Auto) 63.3 (42.2-75.2) % Lymph % (Auto) 19.8 L (20.5-50.1) % [place] % (Auto) 11.9 H (2-8) % Eos % (Auto) 4.7 H (1.0-3.0) % Baso % (Auto) 0.3 (0.0-1.0) % Sodium 140 (136-145) mmol/L Potassium 3.9 (3.5-5.1) mmol/L Chloride 103 (98-107) mmol/L Carbon Dioxide 30 (21-32) mmol/L Anion Gap 10.9 (7-13) mEq/L BUN 18 (7-18) mg/dL Creatinine 0.90 (0.55-1.02) mg/dL Est Cr Clr Drug Dosing 61.86 mL/min Estimated GFR (MDRD) > 60 Glucose 99 (70-99) mg/dL Calcium 8.1 L (8.5-10.1) mg/dL Result Diagrams: 02/18/21 05:30 02/18/21 05:30 Renny Results Last 24 hrs: Microbiology 02/15/21 15:07 Gram Stain - Final Leg, Unspecified Wound Culture - Preliminary Pseudomonas Aeruginosa Morganella Morganii (Mrsa) Staphylococcus Aureus 02/15/21 15:18 Aerobic Blood Culture - Preliminary Blood - Arm, Left NO GROWTH AFTER 2 DAYS Anaerobic Blood Culture - Final 02/15/21 15:10 Aerobic Blood Culture - Preliminary Blood - Arm, Right NO GROWTH AFTER 2 DAYS Anaerobic Blood Culture - Preliminary NO GROWTH AFTER 2 DAYS Sepsis Event Note - Evaluation Sepsis Screening Result: No Definite Risk - Focused Exam Vital Signs: Vital Signs Temp Pulse Resp BP Pulse Ox 02/18/21 07:21 98.4 F 89 18 119/67 98 - Problem List Review Problem List Initiated/Reviewed/Updated: No - My Orders Last 24 Hours: My Active Orders 02/17/21 10:45 Mineral Oil/Petrolatum,White [Hydrocerin Crm] 10 gm TOP DAILY 02/17/21 12:00 Levofloxacin/Dextrose 5%-Water [Levaquin in D5W 750 MG/150 ML] 750 mg Premix Bag 1 bag IV Q24H 02/17/21 21:00 Vancomycin 1 gm Sodium Chloride 0.9% [Normal Saline (AdvBag)] 250 ml IV Q12HR 02/18/21 09:07 DC Burnett Catheter [Urinary Catheter Removal] [RC] PER UNIT ROUTINE 02/18/21 14:00 Furosemide [Lasix] 40 mg IVPUSH BIDDIURETIC 02/18/21 20:30 VANCOMYCIN TROUGH [CHEM] Timed 02/19/21 05:11 BASIC METABOLIC PANEL,BMP [CHEM] AM CBC WITH AUTO DIFF [HEME] AM 02/20/21 05:11 BASIC METABOLIC PANEL,BMP [CHEM] AM CBC WITH AUTO DIFF [HEME] AM 02/21/21 05:11 BASIC METABOLIC PANEL,BMP [CHEM] AM CBC WITH AUTO DIFF [HEME] AM 02/22/21 05:11 BASIC METABOLIC PANEL,BMP [CHEM] AM CBC WITH AUTO DIFF [HEME] AM - Plan Plan:: extensive cellulitis/ lymphoedema, lower ext edema decreased mobility: due to lower ext edema Chronic back pain Obesity Would cult: Gram positive and pseudomonas. b cult: Neg so far. Vanco + Levaquin ( awaiting sensitivity) Dressing DC Burnett Decrease Lasix to BIDdiuretic PT DVT prophylaxis: Lovenox Full code.
[2021-02-18] MEDS: oxyCODONE 5 MG Tab PO PRN (10:31)
[2021-02-18] MEDS: Levofloxacin/Dextrose 5%-Water 750 MG in Premix Bag 1 BAG IV SCH (12:24)
[2021-02-18] MEDS: Furosemide 40 MG/4 ML VIAL IVPUSH SCH (14:18)
[2021-02-18] MEDS: Acetaminophen 325 MG Tab PO PRN (17:23)
[2021-02-18] MEDS: Potassium Chloride 10 MEQ Tab.ER PO SCH (22:18)
[2021-02-19 07:04] LABS: CHLORIDE,CL 104 mmol/L (98-107); SODIUM,NA 139 mmol/L (136-145)
[2021-02-19] MEDS: Furosemide 40 MG/4 ML VIAL IVPUSH SCH ×2 (09:27→13:48)
[2021-02-19] MEDS: Enoxaparin 40 MG/0.4 ML Syringe SUBCUT SCH (09:32)
[2021-02-19] MEDS: Mineral Oil/White Petrolatum Crm 113 GM Jar TOP SCH (09:34)
[2021-02-19] MEDS: Nystatin Topical Powder 30 GM Bottle TOP SCH ×2 (09:34→20:35)
--- NOTE | 2021-02-19 10:10 | PCM.PN ---
- General Info Date of Service: 02/19/21 Functional Status: Reports: Pain Controlled, Tolerating Diet - Review of Systems General: Denies: Fever, Chills Pulmonary: Denies: Shortness of Breath Cardiovascular: Denies: Chest Pain Gastrointestinal: Denies: Abdominal Pain Musculoskeletal: Reports: Other (legs in dressing) Skin: Reports: Rash (reportedly improving), Other Psychiatric: Reports: No Symptoms - Patient Data Vitals - Most Recent: Last Vital Signs Temp 97.0 F 02/19/21 08:00 Pulse 87 02/19/21 08:00 Resp 18 02/19/21 08:00 BP 129/60 02/19/21 08:00 Pulse Ox 97 02/19/21 08:00 Weight - Most Recent: 220 lb 3.2 oz I&O - Last 24 Hours: Intake & Output 02/18/21 02/19/21 02/19/21 22:59 06:59 14:59 Intake Total 150 150 480 Balance 150 150 480 Lab Results Last 24 Hours: Laboratory Results - last 24 hr 02/19/21 02/19/21 Range/Units 05:50 05:50 WBC 7.0 (5.0-10.0) 10^3/uL RBC 4.26 (4.2-5.4) 10^6/uL Hgb 11.2 L (12.0-16.0) g/dL Hct 35.2 L (37.0-47.0) % MCV 82.6 (80-100) fL MCH 26.3 L (27.0-34.0) pg MCHC 31.8 L (33.0-35.0) g/dL Plt Count 224 (150-450) 10^3/uL Neut % (Auto) 67.1 (42.2-75.2) % Lymph % (Auto) 15.6 L (20.5-50.1) % [place] % (Auto) 12.5 H (2-8) % Eos % (Auto) 4.7 H (1.0-3.0) % Baso % (Auto) 0.1 (0.0-1.0) % Sodium 139 (136-145) mmol/L Potassium 4.0 (3.5-5.1) mmol/L Chloride 104 (98-107) mmol/L Carbon Dioxide 29 (21-32) mmol/L Anion Gap 10.0 (7-13) mEq/L BUN 21 H (7-18) mg/dL Creatinine 0.83 (0.55-1.02) mg/dL Est Cr Clr Drug Dosing 67.08 mL/min Estimated GFR (MDRD) > 60 Glucose 119 H (70-99) mg/dL Calcium 8.3 L (8.5-10.1) mg/dL Renny Results Last 24 Hours: Microbiology 02/15/21 15:07 Gram Stain - Final Leg, Unspecified Wound Culture - Final Pseudomonas Aeruginosa Morganella Morganii (Mrsa) Staphylococcus Aureus Pseudomonas Species 02/15/21 15:18 Aerobic Blood Culture - Preliminary Blood - Arm, Left NO GROWTH AFTER 3 DAYS Anaerobic Blood Culture - Final 02/15/21 15:10 Aerobic Blood Culture - Preliminary Blood - Arm, Right NO GROWTH AFTER 3 DAYS Anaerobic Blood Culture - Preliminary NO GROWTH AFTER 3 DAYS Med Orders - Current: Current Medications Acetaminophen (Acetaminophen 325 Mg Tab) 650 mg PO Q4H PRN PRN Reason: Pain (Mild 1-3)/fever Last Admin: 02/18/21 17:23 Dose: 650 mg Documented by: Bisacodyl (Bisacodyl 5 Mg Tab) 5 mg PO DAILY PRN PRN Reason: Constipation Docusate Sodium (Docusate Sodium 100 Mg Cap) 100 mg PO BID PRN PRN Reason: Constipation Last Admin: 02/17/21 20:22 Dose: 100 mg Documented by: Enoxaparin Sodium (Enoxaparin 40 Mg/0.4 Ml Syringe) 40 mg SUBCUT DAILY [facility] Last Admin: 02/19/21 09:32 Dose: 40 mg Documented by: Furosemide (Furosemide 40 Mg/4 Ml Vial) 40 mg IVPUSH BIDDIURETIC [facility] Last Admin: 02/19/21 09:27 Dose: 40 mg Documented by: Influenza Virus Vaccine (Pharmacy To Dose - Influenza Vaccine) 1 each IM DAILY [facility] Last Admin: 02/18/21 09:34 Dose: Not Given Documented by: Levofloxacin (Levofloxacin 500 Mg Tab) 750 mg PO Q24H [facility] Mineral Oil/White Petrolatum (Mineral Oil/White Petrolatum Crm 113 Gm Jar) 10 gm TOP DAILY [facility] Last Admin: 02/19/21 09:34 Dose: 1 applic Documented by: Nystatin (Nystatin Topical Powder 30 Gm Bottle) 0 gm TOP BID [facility] Last Admin: 02/19/21 09:34 Dose: 1 applic Documented by: Ondansetron HCl (Ondansetron 4 Mg/2 Ml Sdv) 4 mg IVPUSH Q6H PRN PRN Reason: Nausea/Vomiting Oxycodone HCl (Oxycodone 5 Mg Tab) 5 mg PO Q6H PRN PRN Reason: Pain (severe 7-10) Last Admin: 02/18/21 10:31 Dose: 5 mg Documented by: Potassium Chloride (Potassium Chloride 10 Meq Tab.Er) 20 meq PO BEDTIME [facility] Last Admin: 02/18/21 22:18 Dose: 20 meq Documented by: Discontinued Medications Furosemide (Furosemide 20 Mg/2 Ml Vial) 20 mg IVPUSH BIDDIURETIC [facility] Last Admin: 02/16/21 08:11 Dose: 20 mg Documented by: Furosemide (Furosemide 20 Mg/2 Ml Vial) 40 mg IVPUSH TIDMEALS [facility] Last Admin: 02/18/21 07:58 Dose: 40 mg Documented by: Vancomycin HCl 1 gm/ Sodium (Chloride) 250 mls @ 166.667 mls/hr IV Q8H [facility] Last Admin: 02/17/21 09:37 Dose: 166.667 mls/hr Documented by: Levofloxacin/Dextrose 750 mg/ (Premix) 150 mls @ 100 mls/hr IV Q24H [facility] Last Admin: 02/18/21 12:24 Dose: 100 mls/hr Documented by: Vancomycin HCl 1 gm/ Sodium (Chloride) 250 mls @ 166.667 mls/hr IV Q12HR [facility] Last Admin: 02/18/21 09:32 Dose: 166.667 mls/hr Documented by: Vancomycin HCl (Pharmacy To Dose - Vancomycin) 1 dose .XX ASDIRECTED [facility] - Exam Quality Assessment: No: Supplemental Oxygen Urinary Catheter Total Time: 2Days 18Hours General: Alert, Oriented Neck: No JVD Lungs: Clear to Auscultation, Normal Respiratory Effort Cardiovascular: Regular Rhythm GI/Abdominal Exam: Soft Extremities: Pedal Edema (improving), Other (legs in dressing) Skin: Other (legs in dressing) Neurological: No New Focal Deficit Psy/Mental Status: Alert, Normal Affect - Patient Data Lab Results Last 24 hrs: Laboratory Results - last 24 hr 02/19/21 02/19/21 Range/Units 05:50 05:50 WBC 7.0 (5.0-10.0) 10^3/uL RBC 4.26 (4.2-5.4) 10^6/uL Hgb 11.2 L (12.0-16.0) g/dL Hct 35.2 L (37.0-47.0) % MCV 82.6 (80-100) fL MCH 26.3 L (27.0-34.0) pg MCHC 31.8 L (33.0-35.0) g/dL Plt Count 224 (150-450) 10^3/uL Neut % (Auto) 67.1 (42.2-75.2) % Lymph % (Auto) 15.6 L (20.5-50.1) % [place] % (Auto) 12.5 H (2-8) % Eos % (Auto) 4.7 H (1.0-3.0) % Baso % (Auto) 0.1 (0.0-1.0) % Sodium 139 (136-145) mmol/L Potassium 4.0 (3.5-5.1) mmol/L Chloride 104 (98-107) mmol/L Carbon Dioxide 29 (21-32) mmol/L Anion Gap 10.0 (7-13) mEq/L BUN 21 H (7-18) mg/dL Creatinine 0.83 (0.55-1.02) mg/dL Est Cr Clr Drug Dosing 67.08 mL/min Estimated GFR (MDRD) > 60 Glucose 119 H (70-99) mg/dL Calcium 8.3 L (8.5-10.1) mg/dL Result Diagrams: 02/19/21 05:50 02/19/21 05:50 Renny Results Last 24 hrs: Microbiology 02/15/21 15:07 Gram Stain - Final Leg, Unspecified Wound Culture - Final Pseudomonas Aeruginosa Morganella Morganii (Mrsa) Staphylococcus Aureus Pseudomonas Species 02/15/21 15:18 Aerobic Blood Culture - Preliminary Blood - Arm, Left NO GROWTH AFTER 3 DAYS Anaerobic Blood Culture - Final 02/15/21 15:10 Aerobic Blood Culture - Preliminary Blood - Arm, Right NO GROWTH AFTER 3 DAYS Anaerobic Blood Culture - Preliminary NO GROWTH AFTER 3 DAYS Sepsis Event Note - Evaluation Sepsis Screening Result: No Definite Risk - Focused Exam Vital Signs: Vital Signs Temp Pulse Resp BP BP Pulse Ox 02/19/21 08:00 97.0 F 87 18 129/60 97 02/19/21 04:00 98.5 F 80 18 124/64 96 - Problem List Review Problem List Initiated/Reviewed/Updated: No - My Orders Last 24 Hours: My Active Orders 02/18/21 14:00 Furosemide [Lasix] 40 mg IVPUSH BIDDIURETIC 02/19/21 16:00 levoFLOXacin [Levaquin] 750 mg PO Q24H 02/20/21 05:11 BASIC METABOLIC PANEL,BMP [CHEM] AM CBC WITH AUTO DIFF [HEME] AM 02/21/21 05:11 BASIC METABOLIC PANEL,BMP [CHEM] AM CBC WITH AUTO DIFF [HEME] AM 02/22/21 05:11 BASIC METABOLIC PANEL,BMP [CHEM] AM CBC WITH AUTO DIFF [HEME] AM - Plan Plan:: Extensive cellulitis/ lymphoedema to B lower ext edema decreased mobility: due to lower ext edema Chronic back pain Obesity Would cult: Gram positive and pseudomonas: sensitive to Levaquin b cult: Neg so far. Dressing Decrease Lasix to BIDdiuretic PT DVT prophylaxis: Lovenox Full code.
[2021-02-19] MEDS: oxyCODONE 5 MG Tab PO PRN (13:58)
[2021-02-19] MEDS ORDERED: Levofloxacin 500 MG Tab PO SCH (16:00)
[2021-02-19] MEDS: Potassium Chloride 10 MEQ Tab.ER PO SCH (20:34)
[2021-02-19] MEDS: Acetaminophen 325 MG Tab PO PRN (22:06)
[2021-02-20 06:44] LABS: ANION GAP 13.2 mEq/L (7-13); CHLORIDE,CL 103 mmol/L (98-107); SODIUM,NA 141 mmol/L (136-145)
[2021-02-20 09:17] LABS: HEMOGLOBIN A1C 5.5 % (<5.7)
[2021-02-20] MEDS: Nystatin Topical Powder 30 GM Bottle TOP SCH (09:37)
[2021-02-20] MEDS: Mineral Oil/White Petrolatum Crm 113 GM Jar TOP SCH (09:37)
[2021-02-20] MEDS: Furosemide 40 MG/4 ML VIAL IVPUSH SCH ×2 (09:38→16:34)
[2021-02-20] MEDS: Enoxaparin 40 MG/0.4 ML Syringe SUBCUT SCH (09:38)
--- NOTE | 2021-02-20 10:41 | PCM.DCSUM1 ---
Discharge Summary - Hospital Course Free Text/Narrative:: Pt is 50 y/o women sent from the clinic by her primary provider due to extensive cellulitis B legs. PT has chronic lymphedema with h/o recurrent cellulitis. Due to the extensive cellulitis, pt was admitted for IV antibiotics and dressing. Pt reports chills but no fever. No N/V/D. Extensive cellulitis/ lymphoedema to B lower ext edema: markedly improved. Would cult: staph and pseudomonas: sensitive to Levaquin b cult: Neg so far. to continue with oral levaquin at home. Dressing: to continue with outpt daily dressing Decrease Lasix to 20 BIDdiuretic. decreased mobility: due to lower ext edema: improved. Chronic back pain Obesity: impaired fasting blood sugar but AIC was NL. pt was advised to lose wt Diagnosis: Stroke: No - Discharge Data Discharge Date: 02/20/21 Discharge Disposition: Home, Self-Care 01 Condition: Good - Referral to Home Health Primary Care Physician: PCP None - Patient Summary/Data Consults: Consultations 02/15/21 14:49 OT Evaluation and Treatment [CONS] Routine PT Evaluation and Treatment [CONS] Routine - Patient Instructions Diet: Limited Carb Activity: As Tolerated Notify Provider of: Fever, Increased Pain, Swelling and Redness, Drainage, Nausea and/or Vomiting Other/Special Instructions: Off work till Feb 27. CBC and BMP on . f/u with your doctor about the results. to see your doctor in one week. for outpt daily dressing. Return toER if not beteer or any change. - Discharge Plan *PRESCRIPTION DRUG MONITORING PROGRAM REVIEWED*: Not Applicable *COPY OF PRESCRIPTION DRUG MONITORING REPORT IN PATIENT [place]: Not Applicable Prescriptions/Med Rec: Mineral Oil/Petrolatum,White [Hydrocerin Crm] 10 gm TOP DAILY 10 Days #100 jar Potassium Chloride [Klor-Con 10] 20 meq PO BEDTIME 10 Days #10 tab.er Furosemide [Lasix] 20 mg IVPUSH BIDDIURETIC 10 Days #20 vial levoFLOXacin [Levaquin] 750 mg PO Q24H 10 Days #10 tablet oxyCODONE 5 mg PO Q8HR PRN 5 Days #15 tablet PRN Reason: Pain (Severe 7-10) Home Medications: Home Meds Acetaminophen [Acetaminophen Extra Strength] 1,500 mg PO DAILY PRN 11/26/20 [History] Ibuprofen 200 mg PO Q6H PRN 11/26/20 [History] No122/Iron/Folic Acid [ Multi Tablet] 1 tab PO DAILY 11/26/20 [History] Furosemide [Lasix] 20 mg IVPUSH BIDDIURETIC 10 Days #20 vial 02/20/21 [Rx] Mineral Oil/Petrolatum,White [Hydrocerin Crm] 10 gm TOP DAILY 10 Days #100 jar 02/20/21 [Rx] Potassium Chloride [Klor-Con 10] 20 meq PO BEDTIME 10 Days #10 tab.er 02/20/21 [Rx] levoFLOXacin [Levaquin] 750 mg PO Q24H 10 Days #10 tablet 02/20/21 [Rx] oxyCODONE 5 mg PO Q8HR PRN 5 Days #15 tablet 02/20/21 [Rx] - Discharge Summary/Plan Comment DC Time >30 min.: Yes Total # of Minutes for Discharge Time: 35 min Discharge Summary/Plan Comment: 356 min - General Info Date of Service: 02/20/21 Functional Status: Reports: Pain Controlled, Tolerating Diet, Ambulating - Review of Systems General: Denies: Fever, Fatigue Pulmonary: Denies: Shortness of Breath Cardiovascular: Denies: Chest Pain Gastrointestinal: Denies: Abdominal Pain Neurological: Denies: Confusion Psychiatric: Denies: Confusion - Patient Data Vitals - Most Recent: Last Vital Signs Temp 99.3 F 02/20/21 08:00 Pulse 85 02/20/21 08:00 Resp 18 02/20/21 08:00 BP 131/70 02/20/21 08:00 Pulse Ox 96 02/20/21 08:00 Weight - Most Recent: 220 lb 3.2 oz I&O - Last 24 hours: Intake & Output 02/19/21 02/20/21 02/20/21 22:59 06:59 14:59 Intake Total 240 Balance 240 Lab Results - Last 24 hrs: Laboratory Results - last 24 hr 02/20/21 02/20/21 02/20/21 Range/Units 06:05 06:05 06:05 WBC 5.8 (5.0-10.0) 10^3/uL RBC 4.21 (4.2-5.4) 10^6/uL Hgb 11.2 L (12.0-16.0) g/dL Hct 35.1 L (37.0-47.0) % MCV 83.4 (80-100) fL MCH 26.6 L (27.0-34.0) pg MCHC 31.9 L (33.0-35.0) g/dL Plt Count 200 (150-450) 10^3/uL Neut % (Auto) 61.5 (42.2-75.2) % Lymph % (Auto) 19.7 L (20.5-50.1) % [place] % (Auto) 13.0 H (2-8) % Eos % (Auto) 5.5 H (1.0-3.0) % Baso % (Auto) 0.3 (0.0-1.0) % Sodium 141 (136-145) mmol/L Potassium 4.2 (3.5-5.1) mmol/L Chloride 103 (98-107) mmol/L Carbon Dioxide 29 (21-32) mmol/L Anion Gap 13.2 H (7-13) mEq/L BUN 20 H (7-18) mg/dL Creatinine 0.92 (0.55-1.02) mg/dL Est Cr Clr Drug Dosing 60.52 mL/min Estimated GFR (MDRD) > 60 Glucose 113 H (70-99) mg/dL Hemoglobin A1c 5.5 (<5.7) % Calcium 8.7 (8.5-10.1) mg/dL LESLY Results - Last 24 hrs: Microbiology 02/15/21 15:18 Aerobic Blood Culture - Preliminary Blood - Arm, Left NO GROWTH AFTER 4 DAYS Anaerobic Blood Culture - Final 02/15/21 15:10 Aerobic Blood Culture - Preliminary Blood - Arm, Right NO GROWTH AFTER 4 DAYS Anaerobic Blood Culture - Preliminary NO GROWTH AFTER 4 DAYS 02/15/21 15:07 Gram Stain - Final Leg, Unspecified Wound Culture - Final Pseudomonas Aeruginosa Morganella Morganii (Mrsa) Staphylococcus Aureus Pseudomonas Species Med Orders - Current: Current Medications Acetaminophen (Acetaminophen 325 Mg Tab) 650 mg PO Q4H PRN PRN Reason: Pain (Mild 1-3)/fever Last Admin: 02/19/21 22:06 Dose: 650 mg Documented by: Bisacodyl (Bisacodyl 5 Mg Tab) 5 mg PO DAILY PRN PRN Reason: Constipation Docusate Sodium (Docusate Sodium 100 Mg Cap) 100 mg PO BID PRN PRN Reason: Constipation Last Admin: 02/17/21 20:22 Dose: 100 mg Documented by: Enoxaparin Sodium (Enoxaparin 40 Mg/0.4 Ml Syringe) 40 mg SUBCUT DAILY [facility] Last Admin: 02/20/21 09:38 Dose: 40 mg Documented by: Furosemide (Furosemide 40 Mg/4 Ml Vial) 40 mg IVPUSH BIDDIURETIC [facility] Last Admin: 02/20/21 09:38 Dose: 40 mg Documented by: Influenza Virus Vaccine (Pharmacy To Dose - Influenza Vaccine) 1 each IM DAILY [facility] Last Admin: 02/19/21 12:48 Dose: Not Given Documented by: Levofloxacin (Levofloxacin 500 Mg Tab) 750 mg PO Q24H [facility] Last Admin: 02/19/21 16:42 Dose: 750 mg Documented by: Mineral Oil/White Petrolatum (Mineral Oil/White Petrolatum Crm 113 Gm Jar) 10 gm TOP DAILY [facility] Last Admin: 02/20/21 09:37 Dose: 1 applic Documented by: Nystatin (Nystatin Topical Powder 30 Gm Bottle) 0 gm TOP BID [facility] Last Admin: 02/20/21 09:37 Dose: 1 applic Documented by: Ondansetron HCl (Ondansetron 4 Mg/2 Ml Sdv) 4 mg IVPUSH Q6H PRN PRN Reason: Nausea/Vomiting Oxycodone HCl (Oxycodone 5 Mg Tab) 5 mg PO Q6H PRN PRN Reason: Pain (severe 7-10) Last Admin: 02/19/21 13:58 Dose: 5 mg Documented by: Potassium Chloride (Potassium Chloride 10 Meq Tab.Er) 20 meq PO BEDTIME [facility] Last Admin: 02/19/21 20:34 Dose: 20 meq Documented by: Discontinued Medications Furosemide (Furosemide 20 Mg/2 Ml Vial) 20 mg IVPUSH BIDDIURETIC [facility] Last Admin: 02/16/21 08:11 Dose: 20 mg Documented by: Furosemide (Furosemide 20 Mg/2 Ml Vial) 40 mg IVPUSH TIDMEALS [facility] Last Admin: 02/18/21 07:58 Dose: 40 mg Documented by: Vancomycin HCl 1 gm/ Sodium (Chloride) 250 mls @ 166.667 mls/hr IV Q8H [facility] Last Admin: 02/17/21 09:37 Dose: 166.667 mls/hr Documented by: Levofloxacin/Dextrose 750 mg/ (Premix) 150 mls @ 100 mls/hr IV Q24H [facility] Last Admin: 02/18/21 12:24 Dose: 100 mls/hr Documented by: Vancomycin HCl 1 gm/ Sodium (Chloride) 250 mls @ 166.667 mls/hr IV Q12HR [facility] Last Admin: 02/18/21 09:32 Dose: 166.667 mls/hr Documented by: Vancomycin HCl (Pharmacy To Dose - Vancomycin) 1 dose .XX ASDIRECTED BOWEN - Exam Quality Assessment: Denies: Supplemental Oxygen General: Reports: Alert, Oriented, Cooperative Neck: Reports: No JVD Lungs: Reports: Clear to Auscultation, Normal Respiratory Effort Cardiovascular: Reports: Regular Rate, Regular Rhythm GI/Abdominal Exam: Normal Bowel Sounds, Soft, Non-Tender Extremities: Other (edema much improved) Skin: Reports: Other (cellultis much improved) Neurological: Reports: No New Focal Deficit
[2021-02-20] MEDS ORDERED: Enoxaparin 40 MG/0.4 ML Syringe SUBCUT SCH (12:00)
[2021-02-20] MEDS ORDERED: Levofloxacin 500 MG Tab PO SCH (12:45)
[2021-02-21] MEDS ORDERED: Enoxaparin 40 MG/0.4 ML Syringe SUBCUT SCH (09:00)
== END 2021-02-20 13:55 | disposition home or self-care (01) | DRG 383 ==
LOC: UNDOADMIN 14:27 → DL.MS 14:27
PROVIDERS: ADMIT Internal Medicine; ATTEND Internal Medicine
DX: L03.115 Cellulitis of right lower limb (principal); L03.116 Cellulitis of left lower limb; H54.7 Unspecified visual loss; E78.00 Pure hypercholesterolemia, unspecified; M54.9 Dorsalgia, unspecified; G89.29 Other chronic pain; E66.9 Obesity, unspecified; I89.0 Lymphedema, not elsewhere classified; B96.5 Pseudomonas (aeruginosa) (mallei) (pseudomallei) as the cause of diseases classified elsewhere; Z79.82 Long term (current) use of aspirin; Z86.718 Personal history of other venous thrombosis and embolism; Z68.39 Body mass index [BMI] 39.0-39.9, adult
CPT/HCPCS: 36415; 51702; 80048; 80202; 83036; 85025; 87040; 87070; 87077; 87186; 87205; 90686; 93970; 93971; 97140-GO; 97162-GP; 97166-GO; 97530-GO; A9270-GY; G0008; J1650; J1940; J1956; J3370; J7050

== ENCOUNTER 2021-06-10 12:52 | Emergency (ER) | payer BC ==
[2021-06-10 15:19] LABS: ANION GAP 7.9 mEq/L (7-13); CHLORIDE,CL 106 mmol/L (98-107); SODIUM,NA 142 mmol/L (136-145)
[2021-06-10] MEDS ORDERED: Bacitracin Oint 1 GM U/D Packet TOP ONE (17:54)
[2021-06-10] MEDS ORDERED: Bacitracin/Neomycin/Polymyxin B Oint 28.4 GM Tube ONE (18:01)
== END 2021-06-10 19:05 | disposition home or self-care (01) ==
LOC: DL.ED 12:52
DX: L03.115 Cellulitis of right lower limb (principal); L03.116 Cellulitis of left lower limb; E66.9 Obesity, unspecified
CPT/HCPCS: 36415; 80053; 83605; 85025; 86140; 87070; 87077; 87186; 87205; 96365; 96366; 99283; A9270; J3370; J7040

== ENCOUNTER 2021-06-13 14:19 | Inpatient (IN) | payer BC ==
[2021-06-13] MEDS ORDERED: Ondansetron 4 MG/2 ML SDV IVPUSH PRN (16:25)
[2021-06-13] MEDS ORDERED: Docusate Sodium 100 MG Cap PO PRN (16:25)
[2021-06-13] MEDS: Potassium Chloride 10 MEQ Tab.ER PO SCH (22:26)
[2021-06-13] MEDS: Heparin Sodium 5,000 Units/ML Vial SUBCUT SCH (22:27)
[2021-06-13] MEDS: Sodium Chloride 0.9% 10 ML Syringe FLUSH SCH (22:27)
[2021-06-13] MEDS: oxyCODONE 5 MG Tab PO PRN (22:27)
[2021-06-13] MEDS: Acetaminophen 325 MG Tab PO PRN (22:28)
[2021-06-13] MEDS: Temazepam 15 MG Cap PO PRN (22:29)
[2021-06-14] MEDS: Heparin Sodium 5,000 Units/ML Vial SUBCUT SCH ×3 (05:08→22:04)
[2021-06-14 06:57] LABS: ANION GAP 12.3 mEq/L (7-13); CHLORIDE,CL 105 mmol/L (98-107); SODIUM,NA 141 mmol/L (136-145)
[2021-06-14] MEDS: Losartan 50 MG Tab PO SCH (08:52)
[2021-06-14] MEDS: Furosemide 20 MG Tab PO SCH (08:52)
[2021-06-14] MEDS: Acetaminophen 325 MG Tab PO PRN ×2 (08:52→16:10)
[2021-06-14] MEDS: Sodium Chloride 0.9% 10 ML Syringe FLUSH SCH ×2 (08:53→20:41)
[2021-06-14] MEDS: Sodium Chloride 0.9% 10 ML Syringe FLUSH PRN (12:15)
[2021-06-14] MEDS: oxyCODONE 5 MG Tab PO PRN (20:40)
[2021-06-14] MEDS: Potassium Chloride 10 MEQ Tab.ER PO SCH (20:41)
[2021-06-14] MEDS: Temazepam 15 MG Cap PO PRN (22:05)
[2021-06-15] MEDS: Acetaminophen 325 MG Tab PO PRN ×2 (06:11→17:13)
[2021-06-15] MEDS: Heparin Sodium 5,000 Units/ML Vial SUBCUT SCH ×2 (06:12→14:58)
[2021-06-15] MEDS: Losartan 50 MG Tab PO SCH (08:44)
[2021-06-15] MEDS: Sodium Chloride 0.9% 10 ML Syringe FLUSH SCH ×2 (08:45→22:12)
[2021-06-15] MEDS: Furosemide 20 MG Tab PO SCH (08:45)
[2021-06-15 09:58] LABS: CHLORIDE,CL 104 mmol/L (98-107); SODIUM,NA 138 mmol/L (136-145)
[2021-06-15] MEDS: Potassium Chloride 10 MEQ Tab.ER PO SCH (20:58)
[2021-06-16] MEDS ORDERED: oxyCODONE 5 MG Tab PO PRN (07:18)
[2021-06-16] MEDS: Enoxaparin 40 MG/0.4 ML Syringe SUBCUT SCH (09:00)
[2021-06-16] MEDS: Losartan 50 MG Tab PO SCH (09:01)
[2021-06-16] MEDS: Furosemide 20 MG Tab PO SCH (09:02)
[2021-06-16] MEDS: Sodium Chloride 0.9% 10 ML Syringe FLUSH SCH ×2 (09:03→22:27)
[2021-06-16] MEDS: Acetaminophen 325 MG Tab PO PRN (11:12)
[2021-06-16] MEDS: AQUAPHOR TOP SCH (15:00)
[2021-06-16] MEDS: Potassium Chloride 10 MEQ Tab.ER PO SCH (20:32)
[2021-06-17] MEDS: Enoxaparin 40 MG/0.4 ML Syringe SUBCUT SCH (08:53)
[2021-06-17] MEDS: Furosemide 20 MG Tab PO SCH (08:54)
[2021-06-17] MEDS: Losartan 50 MG Tab PO SCH (08:54)
[2021-06-17] MEDS: Sodium Chloride 0.9% 10 ML Syringe FLUSH SCH ×2 (08:55→22:27)
[2021-06-17 10:07] LABS: ANION GAP 11.1 mEq/L (7-13); CHLORIDE,CL 103 mmol/L (98-107); SODIUM,NA 140 mmol/L (136-145)
[2021-06-17] MEDS: AQUAPHOR TOP SCH (10:45)
[2021-06-17] MEDS: Acetaminophen 325 MG Tab PO PRN (20:22)
[2021-06-17] MEDS: Potassium Chloride 10 MEQ Tab.ER PO SCH (20:22)
[2021-06-18] MEDS: Losartan 50 MG Tab PO SCH (08:32)
[2021-06-18] MEDS: Sodium Chloride 0.9% 10 ML Syringe FLUSH PRN (08:32)
[2021-06-18] MEDS: Furosemide 20 MG Tab PO SCH (08:32)
[2021-06-18] MEDS: Enoxaparin 40 MG/0.4 ML Syringe SUBCUT SCH (08:32)
[2021-06-18] MEDS: Sodium Chloride 0.9% 10 ML Syringe FLUSH SCH (09:51)
[2021-06-18] MEDS ORDERED: Vancomycin 1 GM SDV ONE (20:05)
[2021-06-18] MEDS: Potassium Chloride 10 MEQ Tab.ER PO SCH (22:13)
[2021-06-19] MEDS: Sodium Chloride 0.9% 10 ML Syringe FLUSH SCH ×3 (00:27→23:29)
[2021-06-19] MEDS: Losartan 50 MG Tab PO SCH (08:47)
[2021-06-19] MEDS: Enoxaparin 40 MG/0.4 ML Syringe SUBCUT SCH (08:47)
[2021-06-19] MEDS: Furosemide 20 MG Tab PO SCH (08:47)
[2021-06-19] MEDS: AQUAPHOR TOP SCH (08:49)
[2021-06-19] MEDS ORDERED: diphenhydrAMINE 25 MG Tab PO PRN (09:20)
[2021-06-19] MEDS: Potassium Chloride 10 MEQ Tab.ER PO SCH (21:43)
[2021-06-20] MEDS: Losartan 50 MG Tab PO SCH (08:32)
[2021-06-20] MEDS: Enoxaparin 40 MG/0.4 ML Syringe SUBCUT SCH (08:32)
[2021-06-20] MEDS: Furosemide 20 MG Tab PO SCH (08:32)
[2021-06-20] MEDS: Sodium Chloride 0.9% 10 ML Syringe FLUSH SCH (08:33)
[2021-06-20] MEDS: AQUAPHOR TOP SCH ×2 (11:00→11:01)
== END 2021-06-20 13:00 | disposition home or self-care (01) | DRG 383 ==
LOC: DL.MS 14:19
PROVIDERS: ADMIT Internal Medicine; ATTEND Internal Medicine
DX: L03.116 Cellulitis of left lower limb (principal); L03.115 Cellulitis of right lower limb; B95.62 Methicillin resistant Staphylococcus aureus infection as the cause of diseases classified elsewhere; H54.7 Unspecified visual loss; E78.00 Pure hypercholesterolemia, unspecified; M54.9 Dorsalgia, unspecified; G89.29 Other chronic pain; Z20.822 Contact with and (suspected) exposure to COVID-19; D63.8 Anemia in other chronic diseases classified elsewhere; K52.1 Toxic gastroenteritis and colitis; T50.995A Adverse effect of other drugs, medicaments and biological substances, initial encounter; Z86.718 Personal history of other venous thrombosis and embolism; Z79.01 Long term (current) use of anticoagulants
CPT/HCPCS: 36415; 80048; 80202; 81001; 82565; 82947; 85025; 85027; 87086; 97140-GO; 97165-GO; A9270-GY; J1644; J1650; J3370; J7050; U0002